=== PATIENT | male | born 1965 | race Caucasian/White ===

== ENCOUNTER 2020-09-30 05:35 | Day surgery (SDC) | payer OTHER ==
[2020-09-28 17:31] VITALS: BMI 27.7
[~2020-09-30 05:35] MED LIST: BUPIVACAINE HCL/PF 0.75% 10 ML VIAL NR ONE
[2020-09-30] MEDS ORDERED: LIDOCAINE HCL 1%, 10 MG/ML (20ML VIAL) ONE (07:33)
[2020-09-30] MEDS ORDERED: DEXAMETHASONE SOD PHOSPHATE/PF 10 MG/ML SDV ONE (07:33)
[2020-09-30] MEDS ORDERED: BUPIVACAINE HCL 50 ML ONE (07:33)
[2020-09-30] MEDS ORDERED: SODIUM CHLORIDE 0.9% P/F 10 ML VIAL IJ ONE (07:41)
[2020-09-30] MEDS ORDERED: BUPIVACAINE HCL/PF 0.75% 10 ML VIAL ONE (08:14)
[2020-09-30] MEDS ORDERED: LIDOCAINE HCL 1%, 10 MG/ML (20ML VIAL) INF ONE ×2 (08:28)
[2020-09-30] MEDS ORDERED: IOHEXOL 180 MG/1 ML ML IJ ONE ×2 (08:29)
[2020-09-30] MEDS ORDERED: BUPIVACAINE HCL/PF 0.75% 10 ML VIAL NR ONE ×2 (08:36)
[2020-09-30 08:55] VITALS: TEMP 97.8
[2020-09-30 09:02] VITALS: BP 133/78; PULSE 55
== END 2020-09-30 09:05 | disposition home or self-care (01) ==
LOC: JASU-SURG 05:35
PROVIDERS: ATTEND Pain Medicine Pain Medicine
PROC: BR15YZZ Fluoroscopy of Thoracic Facet Joint(s) using Other Contrast (ICD-10-PCS; 2020-09-30)
PROC: 3E0T3BZ Introduction of Anesthetic Agent into Peripheral Nerves and Plexi, Percutaneous Approach (ICD-10-PCS; principal; 2020-09-30 08:00)
DX: M47.816 Spondylosis without myelopathy or radiculopathy, lumbar region (principal)
CPT/HCPCS: 76000-TC-FY